=== PATIENT | female | born 1985 | race Caucasian/White ===

== ENCOUNTER → 2018-06-15 | Outpatient (CLI) | payer OTHER | LOC: GMAJS 11:07 | PROVIDERS: ATTEND Physician Assistant | DX: R53.1 Weakness (principal) ==

== ENCOUNTER 2018-06-18 09:57 | Emergency (ER) | payer OTHER ==
--- NOTE | 2018-06-18 10:29 | ED.PDOC ---
History of Present Illness - General Time Seen by Provider: 06/18/18 10:20 Source: patient Exam Limitations: no limitations - History of Present Illness Initial Comments: Patient presents with an uncomfortable sensation when she inhales. She says that it feels like she has been "running in the cold". She denies chest pain. She says that 3 days ago she was diagnosed with a RBBB by EKG and is supposed to see a medical staffing coordinator in [place] for Holter monitoring. She denies dyspnea or cough. No other complaints. Timing/Duration: 4-6 hours Severity: mild Improving Factors: nothing Worsening Factors: nothing Associated Symptoms: denies symptoms Allergies/Adverse Reactions: Allergies NO KNOWN ALLERGY Allergy (Verified 06/18/18 10:30) Home Medications: Ambulatory Orders Abtx For Uti 1 each PO DAILY 06/18/18 Spironolactone 50 mg PO DAILY 06/18/18 Review of Systems - Review of Systems Constitutional: States: no symptoms reported EENTM: States: no symptoms reported Respiratory: States: see HPI Cardiology: States: see HPI Gastrointestinal/Abdominal: States: no symptoms reported Genitourinary: States: no symptoms reported Musculoskeletal: States: no symptoms reported Skin: States: no symptoms reported Neurological: States: no symptoms reported Endocrine: States: no symptoms reported Hematologic/Lymphatic: States: no symptoms reported Family Medical History - Family History Mother Family History: No Known Living Status: Still Living Physical Exam - Physical Exam General Appearance: Alert Eye Exam: bilateral normal Ears, Nose, Throat: normal ENT inspection Neck: non-tender, full range of motion, supple Respiratory: chest non-tender, lungs clear, normal breath sounds Cardiovascular/Chest: normal peripheral pulses, regular rate, rhythm, no edema Gastrointestinal/Abdominal: normal bowel sounds, non tender, soft Back Exam: normal inspection, no CVA tenderness Extremity: normal range of motion, non-tender, normal inspection Neurologic: no motor/sensory deficits, alert, normal mood/affect, oriented x 3 Skin Exam: normal color Progress - Progress Progress: 06/18/18 13:36 Laboratory Tests 06/18/18 06/18/18 06/18/18 10:31 10:31 10:32 WBC RBC Hgb Hct MCV MCH MCHC RDW Plt Count MPV Absolute Neuts (auto) Absolute Lymphs (auto) Absolute Monos (auto) Absolute Eos (auto) Absolute Basos (auto) Neutrophils % Lymphocytes % Monocytes % Eosinophils % Basophils % PT 10.1 INR 1.01 PTT (SP) 23.1 Sodium 137 Potassium 3.8 Chloride 101 Carbon Dioxide 26 Anion Gap 13.8 BUN 15 Creatinine 0.76 BUN/Creatinine Ratio 19.7 Random Glucose 67 L Serum Osmolality 272.9 L Calcium 9.5 Total Bilirubin 0.6 AST 41 ALT 43 Alkaline Phosphatase 37 L Creatine Kinase CK-MB (CK-2) CK-MB (CK-2) % Troponin I B-Natriuretic Peptide Serum Total Protein 7.6 Albumin 4.5 Globulin 3.1 Albumin/Globulin Ratio 1.5 Serum HCG, Qual 06/18/18 06/18/18 06/18/18 10:34 10:34 10:41 WBC 5.7 RBC 4.55 Hgb 14.0 Hct 40.9 MCV 89.8 MCH 30.9 MCHC 34.4 RDW 13.5 Plt Count 281 MPV 7.5 Absolute Neuts (auto) 2.90 Absolute Lymphs (auto) 2.20 Absolute Monos (auto) 0.40 Absolute Eos (auto) 0.10 Absolute Basos (auto) 0.10 Neutrophils % 51.5 Lymphocytes % 38.5 Monocytes % 7.6 Eosinophils % 1.4 Basophils % 1.0 PT INR PTT (SP) Sodium Potassium Chloride Carbon Dioxide Anion Gap BUN Creatinine BUN/Creatinine Ratio Random Glucose Serum Osmolality Calcium Total Bilirubin AST ALT Alkaline Phosphatase Creatine Kinase 119 CK-MB (CK-2) 0.7 CK-MB (CK-2) % 0.59 Troponin I < 0.02 B-Natriuretic Peptide 14.0 Serum Total Protein Albumin Globulin Albumin/Globulin Ratio Serum HCG, Qual Negative Initial EKG read by me showed NSR, no RBBB nor LBBB, no S-T changes, no T wave inversions. CXR unremarkable. Troponin negative. Patient's symptoms resolved in the E.D. Advised follow up with her pcp for Holter Monitoring as scheduled. Care instructions given. E.R. warnings given. Questions were elicited and answered. Patient voiced understanding and agreement with the plan Departure - Departure Clinical Impression: Painful breathing Disposition: Discharge to Home or Self Care Condition: Good Diet: resume usual diet Activity: increase activity as tolerated Referrals: Kit Palomo MD [Primary Care Provider] - 1-2 Weeks Home Medications: Ambulatory Orders Abtx For Uti 1 each PO DAILY 06/18/18 Spironolactone 50 mg PO DAILY 06/18/18 Additional Instructions: Continue your follow up with Holter Monitoring. Return to the E.R. for chest pain, fainting, or shortness of breath.
[2018-06-18 10:46] VITALS: O2SAT 100
--- NOTE | 2018-06-18 11:54 | RAD ---
EXAM DESCRIPTION: Chest,2 Views CLINICAL HISTORY: 33 years Female, pain with inhalation COMPARISON: Radiograph of the chest dated 06/15/2018. TECHNIQUE: PA and lateral radiographs of the chest were obtained. FINDINGS: Trachea is midline.The cardiomediastinal silhouette is normal in size. The pulmonary vasculature is within normal limits.The lungs are clear with no acute consolidation.No evidence of pleural effusions.No evidence of pneumothorax. IMPRESSION: No acute cardiopulmonary process. Electronically signed by: Kristen Cabral MD 06/18/2018 11:51 AM CDT
[2018-06-18 15:04] VITALS: BP 107/60; TEMP 97
== END 2018-06-18 14:50 | disposition home or self-care (01) ==
LOC: ER 09:57
DX: R07.1 Chest pain on breathing (principal)

== ENCOUNTER → 2018-06-21 | Outpatient (CLI) | payer OTHER | LOC: RESP 09:19 | PROVIDERS: ATTEND Family Medicine | DX: R00.2 Palpitations (principal) ==

== ENCOUNTER → 2020-02-03 | Outpatient (CLI) | payer OTHER | LOC: GMAJS 16:27 | PROVIDERS: ATTEND Physician Assistant | DX: R30.0 Dysuria (principal) ==